=== PATIENT | male | born 1990 | race Asian ===

== ENCOUNTER 2020-10-30 09:14 | Emergency (ER) | payer SELFPAY ==
--- NOTE | ~2020-10-30 | US_ITS ---
EXAMINATION: US venous doppler [facility] DATE: 10/30/2020 11:21 INDICATION: Left lower limb redness and pain TECHNIQUE: Pope scale images without and with compression and Doppler images of the left lower extrem ity veins were obtained. COMPARISON: None FINDINGS: The left common femoral vein, profunda femoral vein, femoral vein, popliteal vein, peroneal trunk, posterior tibial veins, and greater saphenous vein are patent. IMPRESSION: 1. Patent left lower extremity veins. No evidence of deep venous thrombosis. Reviewed, dictated and finalized at location B.
[2020-10-30 09:30] VITALS: BP 131/90; PULSE 94; RESP 18; TEMP 37.1; O2SAT 100
[2020-10-30 11:18] VITALS: BP 125/82; PULSE 78; RESP 18; O2SAT 100
[2020-10-30] MEDS: diphenhydrAMINE HCl INJ 50 MG/ML VIAL IV PUSH (11:21)
[2020-10-30] MEDS: FAMOTIDINE 20 MG/2 ML VIAL IV PUSH (11:21)
[2020-10-30] MEDS: DEXAMETHASONE SOD PHOS INJ 4 MG/ML VIAL 10 MG IV PUSH (11:21)
[2020-10-30] MEDS: SODIUM CHLORIDE 0.9% IV 1,000 ML 999 ML IV CONT (11:22)
--- NOTE | 2020-10-30 11:31 | ED.GENADULT ---
HPI - General Adult General Chief complaint: Skin/Abscess/Foreign Body Stated complaint: rash Time Seen by Provider: 10/30/20 10:06 Source: patient and RN notes reviewed Mode of arrival: ambulatory Limitations: no limitations History of Present Illness HPI narrative: Patient is a 30-year-old male who presents to emergency department for reevaluation of his rash that began earlier this week was seen Monday at [place] [facility] was prescribed Benadryl and prednisone notes that he had a diffuse rash at that time with itching notes that he may have had a fever as well. Patient notes that the rash has improved however he has a area to the lateral aspect of the left leg where he continues to be red and tender. Patient denies similar occurrence or known allergic exposures or other symptoms to suggest a source for his rash. Patient notes he has taken his medications with improvement but did not take them today Related Data Home Medications Medication Instructions Recorded Confirmed diphenhydramine HCl [Benadryl] 25 mg PO Q6H PRN 10/30/20 10/30/20 prednisone 20 mg PO BID 10/30/20 10/30/20 Allergies Allergy/AdvReac Type Severity Reaction Status Date / Time No Known Allergies Allergy Verified 10/30/20 09:35 Review of Systems Review of Systems: All systems reviewed & are unremarkable except as noted in HPI and below PMFSH Social History Social History (Updated 10/30/20 @ 11:32 by Arnav Rios PA-C) Smoking status: Never smoker Gender identity (if verbalized by the patient): Male Exam Narrative: Exam Narrative: GENERAL: Well-appearing, well-nourished, and in no acute distress. HEAD: Normocephalic, atraumatic. EYES: PERRLA and EOMI. ENT: Nares clear, no rhinorrhea or epistaxis. Mucous membranes moist. Oropharynx without tonsillar hypertrophy exudate or other lesions. NECK: Supple. No adenopathy or masses. No stridor CHEST: Clear to auscultation. No respiratory distress. No wheezes rales or rhonchi HEART: Regular rate and rhythm. No murmur heard. Normal peripheral pulses. EXTREMITIES: Normal range of motion. No edema. SKIN: Warm, dry, fine macular rash over the extremities and torso patient with confluent area along the left lateral leg that is red with slight warmth to touch extends along the lateral aspect of the lovell is not circumferential no other swelling or deformity of the extremity NEURO: No focal deficits. Alert and oriented x3. Neurovascularly intact. Capillary refill less than 2 seconds PSYCH: Normal mood and affect. Course Course Emergency Course: Patient evaluated for rash had improvement with medications given in the ER unsure as to the etiology will be discharged home with continued steroids and antihistamines provided with reasons to return and primary care referral for referral to dermatology if necessary ABCs and vital signs intact and stable patient agrees with this plan Vital Signs Vital signs: Vital Signs Temperature 98.8 F 10/30/20 09:30 Pulse Rate 94 10/30/20 09:30 Respiratory Rate 18 10/30/20 09:30 Blood Pressure 131/90 10/30/20 09:30 Pulse Oximetry 100 10/30/20 09:30 Temperature 98.8 F 10/30/20 09:30 Pulse Rate 78 10/30/20 11:18 Respiratory Rate 18 10/30/20 11:18 Blood Pressure 125/82 10/30/20 11:18 Pulse Oximetry 100 10/30/20 11:18 Medical Decision Making MDM Narrative Medical decision making narrative: ABCs and vital signs intact and stable patient with rash of unknown etiology will be referred to primary care for further evaluation agreement with plan Vital Signs Vital Signs: Vital Signs Temperature 98.8 F 10/30/20 09:30 Pulse Rate 94 10/30/20 09:30 Respiratory Rate 18 10/30/20 09:30 Blood Pressure 131/90 10/30/20 09:30 Pulse Oximetry 100 10/30/20 09:30 Temperature 98.8 F 10/30/20 09:30 Pulse Rate 78 10/30/20 11:18 Respiratory Rate 18 10/30/20 11:18 Blood Pressure 125/82 10/30/20 11:18 Pulse Oxime
[2020-10-30 11:36] LABS: Basophils Absolute Auto 0.1 K/mm3 (0.0-0.1); Basophils Percent Auto 0.3 % (0.2-1.2); Eosinophils Absolute Auto 0.5 K/mm3 (0-0.3); Eosinophils Percent Auto 3.4 % (0-4.4); Hematocrit 47.3 % (42.0-52.0); Hemoglobin 16.4 g/dL (14.0-18.0); Immature Granulocyte Percent A 2.1 % (0-0.5); Lymphocytes Absolute Auto 1.11 K/mm3 (0.9-3.2); Lymphocytes Percent Auto 7.6 % (18.3-44.2); Mean Corpuscular HGB Conc 34.7 g/dl (32-36); Mean Corpuscular Hemoglobin 30.6 pg (26-34); Mean Corpuscular Volume 88.2 fl (80-100); Mean Platelet Volume 11.1 fl (7.4-10.4); Monocytes Absolute Auto 0.6 K/mm3 (0.1-0.6); Monocytes Percent Auto 4.1 % (2.6-8.5); Neutrophils Percent Auto 82.5 % (45.5-73.1); Platelet Count Result 191 k/mm3 (150-375); Red Blood Count 5.36 M/mm3 (4.6-6.20); Red Cell Distribution Width 12.5 % (11.5-14.5); White Blood Count 14.5 K/mm3 (4.5-10.0)
[2020-10-30 11:51] LABS: Anion Gap 8 mmol/L (8-16); Blood Urea Nitrogen 13 mg/dL (9-20); CRP 2.8 mg/dL (<1.0); Calcium 8.7 mg/dL (8.4-10.2); Carbon Dioxide 27 mmol/L (22-30); Chloride 107 mmol/L (98-107); Estimated CRCL calculation 121 ml/min; Estimated Glomerular Filt Rate > 60; Glucose 98 mg/dL (75-110); Potassium 3.5 mmol/L (3.4-5.0); Sodium 142 mmol/L (137-145)
[2020-10-30 11:51] LABS: Monoscreen Negative (Negative); Negative Monotest Control Negative (Negative); Positive Monotest Control Positive (Positive)
[2020-10-30 12:05] LABS: Erythrocyte Sedimentation Rate 10 mm/hr (0-20)
[2020-10-30 13:51] VITALS: RESP 16
== END 2020-10-30 13:53 | disposition home or self-care (01) ==
PROVIDERS: Emergency Medicine Emergency Medical Services; Emergency Provider Emergency Medicine
DX: R21 Rash and other nonspecific skin eruption (principal)
CPT/HCPCS: 36415; 80048; 85025; 85652; 86140; 86308; 93971; 96361; 96374; 96375; 99284; J1100; J1200; J7030